=== PATIENT | female | born 1965 | race Caucasian/White ===

== ENCOUNTER 2021-11-10 09:07 | Outpatient (REF) | payer OTHER, SELFPAY ==
[2021-11-10 12:16] LABS: Alanine Aminotransferase 19 U/L (0-31); Albumin Level 4.7 g/dL (3.5-5.0); Alkaline Phosphatase 64 U/L (39-117); Anion Gap 12 (12-20); Aspartate Amino Transferase 17 U/L (5-31); Bilirubin Total 0.6 mg/dL (0.0-1.0); Blood Urea Nitrogen 10 mg/dL (9-16); Calcium 9.9 mg/dL (8.4-10.2); Carbon Dioxide 26 mmol/L (22-29); Chloride 101 mmol/L (96-108); Estimated Glomerular Filt Rate > 60; Glucose Random 102 mg/dL (60-115); Potassium 4.3 mmol/L (3.3-5.1); Sodium 135 mmol/L (135-145); Total Protein 7.6 g/dL (6.5-8.0)
== END 2021-11-10 09:08 | disposition home or self-care (01) ==
LOC: HO.WFDLDS 09:07
PROVIDERS: Visit Provider Hospitalist
DX: I10 Essential (primary) hypertension (principal)
CPT/HCPCS: 36415; 80053

== ENCOUNTER 2022-05-28 11:21 | Outpatient (REF) | payer OTHER, SELFPAY ==
--- NOTE | ~2022-05-28 | XR_ITS ---
EXAMINATION: XR CHEST CLINICAL INFORMATION: Chronic cough COMPARISON: December 2015. TECHNIQUE: 2 views of the chest were obtained. FINDINGS: No airspace consolidation or vascular congestion observed. Pleural surfaces appear clear. No distinct pleural effusions. There are older left rib fractures. Thoracolumbar dextroscoliosis again observed. XR/XR chest 2V IMPRESSION: No evidence for acute process.
== END 2022-05-28 11:22 | disposition home or self-care (01) ==
LOC: HO.XRAY 11:21
PROVIDERS: PCP Hospitalist; Visit Provider Hospitalist
DX: R05.3 Chronic cough (principal); R06.02 Shortness of breath
CPT/HCPCS: 71046

== ENCOUNTER 2023-06-03 08:31 | Outpatient (AMB) | payer OTHER, SELFPAY ==
--- NOTE | 2023-06-03 08:40 | MHC.PC.OV ---
Vital Signs 06/03/23 08:50 Height 5 ft Weight 106 lb 8 oz BMI 20.8 BP 102/64 Blood Pressure Location Lt brachial Position Sitting Respiration 13 Pulse 85 Pulse Source Pulse Oximeter Temp 98.6 F Temp Source Oral Pulse Oximetry (%) 98 Oxygen Delivery Method Room Air Intake Visit Reasons: F/u HTN Intake Note: Patient is here for a follow up visit for hypertension. Patient reports no other concerns. Erp Pm Required: No Accompanied by: Self / Same As Patient Post menopausal: Yes Allergies No Known Allergies Allergy (Verified 06/03/23 08:51) medrol Allergy (Unknown, Uncoded 06/03/23 08:51) dizziness Medrol (Ajay) Allergy (Unknown, Uncoded 06/03/23 08:51) dizziness Tobacco use date assessed: 06/03/23 Dental Screening Dental Screen Date: 06/03/23 Did you have a dental visit in the last 12 months?: Yes Did you have a dental problem in the last 6 months where you did not have access to dental care?: No Was dental information given to patient?: Patient has dentist HPI F/u HTN HPI Details 58 y/o female presents to f/u hypertension. Blood pressure today 102/64. She is on amlodipine 5mg and hydrochlorothiazide 25mg. COUNT INCLUDES [facility] Social History Housing: House Patient Tobacco Use Status: Former Tobacco user (3 years ago ) Tobacco use type: Cigarette Years Smoked: 20 years e-Cigarette/Vaping Use: Never Used Second Hand Smoke Exposure: No service: No Current occupational status: employed Current occupational exposures/hazards: No Cognitive needs: No Hearing needs: No Vision needs: No Questionnaire Thrive Questionnaire Date Thrive assessed: 09/18/21 ELLIE-7 AMB Questionnaire ELLIE-7 Date ELLIE - 7 assessed: 01/15/22 Source: Developed by Drs. Elbert Figueroa, Marilin Camacho, Vazquez Craven and colleagues, with an educational ciro from [employer]. Physical exam (Primary Care) Vital Signs: Last Vital Signs Temp 98.6 F 06/03/23 08:50 Pulse 85 06/03/23 08:50 Resp 13 06/03/23 08:50 BP 102/64 06/03/23 08:50 Pulse Ox 98 06/03/23 08:50 Oxygen Delivery Method Room Air 06/03/23 08:50 BMI result Body Mass Index 20.8 Tobacco/Smoking Status: Tobacco use Status Tobacco use date assessed 06/03/23 06/03/23 08:52 Patient Tobacco Use Status Former Tobacco user (3 years 06/03/23 08:41 ago ) Tobacco use type Cigarette 06/03/23 08:41 e-Cigarette/Vaping Use Never Used 06/03/23 08:41 Thrive Assessment: Date of Thrive Assessment Date Thrive assessed 09/18/21 06/03/23 08:41 Assessment and Plan Assessment & Plan (1) HTN (hypertension): Code(s): I10 - Essential (primary) hypertension Plan: Blood?pressure?is?well?controlled.??Goal?is?less?than?140/90. Tolerating?medication?regimen?well?and?she?will?continue?this. Orders: Orders Microalbumin, Random (w Creat) Today I10 - Essential (primary) hypertension TSH reflex Free T4 Today Z00.00 - Encounter for general adult medical examination without abnormal findings Comprehensive [place]. Panel Fast Today Z00.00 - Encounter for general adult medical examination without abnormal findings Lipid Panel Today Z00.00 - Encounter for general adult medical examination without abnormal findings UA and rflx microscopic Today Z00.00 - Encounter for general adult medical examination without abnormal findings Medications: Changed From amlodipine 5 mg PO DAILY 90 tabs 0RF I10 - Essential (primary) hypertension, M54.41 - Lumbago with sciatica, right side To amlodipine 5 mg PO DAILY 90 tabs 2RF 90 days I10 - Essential (primary) hypertension, M54.41 - Lumbago with sciatica, right side Refilled hydrochlorothiazide 25 mg PO QAM 90 tabs 3RF 3 months Coding Level of Care Code Est Pt Level 3 (28256) Diagnoses HTN (hypertension) I10
[2023-06-03 08:50] VITALS: BP 102/64; PULSE 85; RESP 13; TEMP 37; O2SAT 98; BMI 20.8
== END 2023-06-03 09:20 | disposition home or self-care (01) ==
PROVIDERS: PCP Family Medicine; Visit Provider Family Medicine
DX: I10 Essential (primary) hypertension (principal)
CPT/HCPCS: 99213